=== PATIENT | female | born 1945 | race Caucasian/White ===

== ENCOUNTER 2021-04-27 12:51 | Emergency (ER) | payer MEDICARE, SELFPAY ==
--- NOTE | ~2021-04-27 | XR_ITS ---
EXAMINATION: XR chest 2V DATE: 04/27/2021 13:31 INDICATION: Chest pain TECHNIQUE: PA and lateral views of the chest are obtained. COMPARISON: None available FINDINGS: The lungs are free of acute opacities. There is no pleural effusion or pneumothorax. Median sternotomy wires and mediastinal surgical clips are seen, likely from prior coronary artery bypass g rafting. There is mild thoracic spondylosis. Coronary artery stents are noted. There are surgical cli ps in the left axilla. IMPRESSION: 1. No acute cardiopulmonary abnormality. Reviewed, dictated and finalized at location B.
--- NOTE | 2021-04-27 12:52 | ECG_ITS ---
Measurements Intervals [place] Rate: 62 P: 35 PA: 188 QRS: 16 QRSD: 94 T: -1 QT: 399 QTc: 407 Interpretive Statements SINUS RHYTHM INFERIOR INFARCT, AGE INDETERMINATE ABNORMAL ECG Electronically Signed On 04-27-2021 13:09:16 CDT by Wan Bryant D.O.
[2021-04-27 12:59] VITALS: BP 134/57; PULSE 63; RESP 18; TEMP 36.5; O2SAT 99
[2021-04-27 13:15] LABS: Basophils Absolute Auto 0.1 K/mm3 (0.0-0.1); Basophils Percent Auto 0.8 % (0.2-1.2); Eosinophils Absolute Auto 0.3 K/mm3 (0-0.3); Eosinophils Percent Auto 3.7 % (0-4.4); Hematocrit 44.2 % (37.0-47.0); Hemoglobin 14.3 g/dL (12.0-15.0); Immature Granulocyte Absolute 0.03 K/mm3 (0.00-0.031); Immature Granulocyte Percent A 0.3 % (0-0.5); Lymphocytes Absolute Auto 2.06 K/mm3 (0.9-3.2); Lymphocytes Percent Auto 22.8 % (18.3-44.2); Mean Corpuscular HGB Conc 32.4 g/dl (32-36); Mean Corpuscular Hemoglobin 30.2 pg (26-34); Mean Corpuscular Volume 93.2 fl (80-100); Mean Platelet Volume 10.7 fl (7.4-10.4); Monocytes Absolute Auto 0.6 K/mm3 (0.1-0.6); Monocytes Percent Auto 6.1 % (2.6-8.5); Neutrophils Percent Auto 66.3 % (45.5-73.1); Platelet Count Result 310 k/mm3 (150-375); Red Blood Count 4.74 M/mm3 (4.2-5.4); Red Cell Distribution Width 13.2 % (11.5-14.5)
--- NOTE | 2021-04-27 13:17 | PC.NURSE ---
Michelle Chan, added on hepatic and lipase
[2021-04-27 13:19] LABS: Anion Gap 12 mmol/L (8-16); Blood Urea Nitrogen 24 mg/dL (7-17); Calcium 10.1 mg/dL (8.4-10.2); Carbon Dioxide 20 mmol/L (22-30); Chloride 106 mmol/L (98-107); Estimated CRCL calculation 24 ml/min; Estimated Glomerular Filt Rate 28; Glucose 182 mg/dL (65-105); Potassium 4.8 mmol/L (3.4-5.0); Sodium 138 mmol/L (137-145)
[2021-04-27 13:27] LABS: Alanine Aminotransferase 17 U/L (4-35); Albumin Level 4.7 g/dL (3.5-5.1); Alkaline Phosphatase 138 U/L (38-126); Aspartate Amino Transferase 27 U/L (14-36); Bilirubin,Total 0.5 mg/dL (0.2-1.3); INR 0.9; Lipase 293 U/L (23-300); Prothrombin Time 12.1 Seconds (11.1-14.7)
[2021-04-27 13:28] LABS: Partial Thromboplastin Time 25.2 SECONDS (22.3-36.8)
[2021-04-27 13:31] LABS: Troponin I < 0.012 ng/mL (0.000-0.034)
[2021-04-27] MEDS: LIDOCAINE HCL 2% VISC SOLN 15 ML UDC 20 ML PO (14:59)
[2021-04-27] MEDS: MAG HYDROX/AL HYDROX/SIMETH 30 ML UDC PO (14:59)
[2021-04-27 15:00] VITALS: BP 141/81; PULSE 58; PULSE 60; RESP 16; O2SAT 98
[2021-04-27 16:00] LABS: Troponin I < 0.012 ng/mL (0.000-0.034)
[2021-04-27] MEDS: PANTOPRAZOLE 40 MG TABLET PO (16:14)
[2021-04-27 16:15] VITALS: BP 134/77; PULSE 63; RESP 20; O2SAT 98
--- NOTE | 2021-04-27 16:27 | ED.GENADULT ---
HPI - General Adult General Chief complaint: Chest Pain Stated complaint: chest pain Time Seen by Provider: 04/27/21 13:06 Source: patient, family and RN notes reviewed Mode of arrival: ambulatory Limitations: no limitations History of Present Illness HPI narrative: Patient is a 76-year-old female who presents to emergency department for evaluation of epigastric abdominal pain radiating up into the chest patient notes that it began 2 hours after having a lobster dinner last night she notes history of reflux and states that she did take some Pepcid and Tums with minimal improvement. Pain persisted this morning and came in for evaluation. Patient denies similar occurrence in the past but does no history of reflux. Patient denies vomiting. Patient notes she did have some loose stools today. Denies any dyspnea or URI symptoms Related Data Allergies Allergy/AdvReac Type Severity Reaction Status Date / Time codeine Allergy Hives Verified 04/27/21 15:03 Review of Systems Review of Systems: All systems reviewed & are unremarkable except as noted in HPI and below PMFSH Past Medical History Medical History (Updated 04/27/21 @ 16:38 by Solomon Laird PA-C) Coronary artery disease Hyperlipidemia Hypertension Surgical History Surgical History (Updated 04/27/21 @ 16:28 by Solomon Laird PA-C) Hx of CABG Social History Social History Gender identity (if verbalized by the patient): Female Course Course Emergency Course: Patient had improvement with GI cocktail and will be discharged home with outpatient follow-up with primary care felt appropriate and agree with this plan for outpatient follow-up patient is afebrile nontoxic-appearing ABCs and vital signs intact and stable. No other high risk changes in the evaluation Vital Signs Vital signs: Vital Signs Temperature 97.7 F 04/27/21 12:59 Pulse Rate 63 04/27/21 12:59 Respiratory Rate 18 04/27/21 12:59 Blood Pressure 134/57 L 04/27/21 12:59 Pulse Oximetry 99 04/27/21 12:59 Temperature 97.7 F 04/27/21 12:59 Pulse Rate 63 04/27/21 16:15 Respiratory Rate 20 04/27/21 16:15 Blood Pressure 134/77 04/27/21 16:15 Pulse Oximetry 98 04/27/21 16:15 Medical Decision Making [facility] Narrative Medical decision making narrative: Patient presented with GI upset which improved with medications no other high risk changes likely reflux in nature will be discharged with outpatient follow-up agreement with this plan and will return if symptoms worsen Vital Signs Vital Signs: Vital Signs Temperature 97.7 F 04/27/21 12:59 Pulse Rate 63 04/27/21 12:59 Respiratory Rate 18 04/27/21 12:59 Blood Pressure 134/57 L 04/27/21 12:59 Pulse Oximetry 99 04/27/21 12:59 Temperature 97.7 F 04/27/21 12:59 Pulse Rate 63 04/27/21 16:15 Respiratory Rate 20 04/27/21 16:15 Blood Pressure 134/77 04/27/21 16:15 Pulse Oximetry 98 04/27/21 16:15 Lab Data Result diagrams: 04/27/21 13:01 04/27/21 13:01 Labs: Lab Results 04/27/21 04/27/21 04/27/21 Range/Units 13:01 13:01 13:01 WBC 9.0 (4.5-10.0) K/mm3 RBC 4.74 (4.2-5.4) M/mm3 Hgb 14.3 (12.0-15.0) g/dL Hct 44.2 (37.0-47.0) % MCV 93.2 (80-100) fl MCH 30.2 (26-34) pg MCHC 32.4 (32-36) g/dl RDW 13.2 (11.5-14.5) % Plt Count 310 (150-375) k/mm3 MPV 10.7 H (7.4-10.4) fl Immature Gran % (Auto) 0.3 (0-0.5) % Neut % (Auto) 66.3 (45.5-73.1) % Lymph % (Auto) 22.8 (18.3-44.2) % Kane % (Auto) 6.1 (2.6-8.5) % Eos % (Auto) 3.7 (0-4.4) % Baso % (Auto) 0.8 (0.2-1.2) % Lymph # (Auto) 2.06 (0.9-3.2) K/mm3 Kane # (Auto) 0.6 (0.1-0.6) K/mm3 Eos # (Auto) 0.3 (0-0.3) K/mm3 Baso # (Auto) 0.1 (0.0-0.1) K/mm3 Abs Immat Gran (auto) 0.03 (0.00-0.031) K/mm3 Absolute Neuts (auto) 6.0 (1.3-6.7) K/mm3 Absolute Nucleated RBC 0.0 (0.0-0.012) K/mm3 Nucleated RBC %
[2021-04-27 17:01] VITALS: BP 111/74; PULSE 60; RESP 16; O2SAT 97
== END 2021-04-27 17:02 | disposition home or self-care (01) ==
PROVIDERS: Emergency Medicine; Emergency Provider Emergency Medicine
DX: R10.13 Epigastric pain (principal); I25.10 Atherosclerotic heart disease of native coronary artery without angina pectoris; E78.5 Hyperlipidemia, unspecified; I10 Essential (primary) hypertension; Z95.1 Presence of aortocoronary bypass graft; R94.31 Abnormal electrocardiogram [ECG] [EKG]
CPT/HCPCS: 36415; 71046; 80048; 80076; 83690; 84484; 85025; 85610; 85730; 93005; 99284; A9270

== ENCOUNTER 2021-08-26 16:39 | Emergency (ER) | payer MEDICARE, SELFPAY ==
[2021-08-26] VITALS (16 sets, daily range): BP systolic 117–155; BP diastolic 56–78; PULSE 71–80; RESP 11–20; TEMP 36.4; O2SAT 88–99
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
--- NOTE | 2021-08-26 16:45 | ECG_ITS ---
Measurements Intervals [place] Rate: 80 P: 18 HI: 152 QRS: 28 QRSD: 90 T: -14 QT: 355 QTc: 411 Interpretive Statements SINUS RHYTHM INFERIOR INFARCT, AGE INDETERMINATE BORDERLINE ST-T WAVE ABNORMALITY- ANTEROLATERAL LEADS BASELINE ARTIFACT- V3-V5 ABNORMAL ECG Electronically Signed On 08-26-2021 20:25:54 CDT by Wan Bryant D.O.
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
[2021-08-26 18:06] LABS: Basophils Absolute Auto 0.1 K/mm3 (0.0-0.1); Basophils Percent Auto 0.6 % (0.2-1.2); Eosinophils Absolute Auto 0.4 K/mm3 (0-0.3); Eosinophils Percent Auto 3.1 % (0-4.4); Hematocrit 36.7 % (37.0-47.0); Hemoglobin 12.2 g/dL (12.0-15.0); Immature Granulocyte Absolute 0.14 K/mm3 (0.00-0.031); Immature Granulocyte Percent A 1.2 % (0-0.5); Lymphocytes Absolute Auto 2.77 K/mm3 (0.9-3.2); Mean Corpuscular HGB Conc 33.2 g/dl (32-36); Mean Corpuscular Volume 93.1 fl (80-100); Mean Platelet Volume 10.2 fl (7.4-10.4); Monocytes Absolute Auto 0.9 K/mm3 (0.1-0.6); Monocytes Percent Auto 7.4 % (2.6-8.5); Neutrophils Absolute Auto 7.3 K/mm3 (1.3-6.7); Neutrophils Percent Auto 63.7 % (45.5-73.1); Platelet Count Result 290 k/mm3 (150-375); Red Blood Count 3.94 M/mm3 (4.2-5.4); Red Cell Distribution Width 13.2 % (11.5-14.5); White Blood Count 11.5 K/mm3 (4.5-10.0)
[2021-08-26 18:07] LABS: Glucose Point of Care 80 mg/dl (65-105)
[2021-08-26 18:18] LABS: Prothrombin Time 12.9 Seconds (11.1-14.7)
[2021-08-26 18:19] LABS: Partial Thromboplastin Time 26.7 SECONDS (22.3-36.8)
[2021-08-26 18:20] LABS: Alanine Aminotransferase 18 U/L (4-35); Alkaline Phosphatase 104 U/L (38-126); Anion Gap 12 mmol/L (8-16); Aspartate Amino Transferase 30 U/L (14-36); Bilirubin,Total 0.3 mg/dL (0.2-1.3); Blood Urea Nitrogen 37 mg/dL (7-17); Calcium 9.7 mg/dL (8.4-10.2); Carbon Dioxide 21 mmol/L (22-30); Chloride 108 mmol/L (98-107); Estimated CRCL calculation 22 ml/min; Estimated Glomerular Filt Rate 24; Glucose 90 mg/dL (65-110); Lipase 319 U/L (23-300); Magnesium 1.9 mg/dL (1.6-2.3); Potassium 3.9 mmol/L (3.4-5.0); Sodium 141 mmol/L (137-145)
[2021-08-26] MEDS: ONDANSETRON INJ 4 MG/2 ML VIAL IV PUSH (18:23)
[2021-08-26] MEDS: MORPHINE SULFATE (*CRX) 2 MG/ML INJ IV PUSH (18:27)
[2021-08-26 18:31] LABS: Troponin I < 0.012 ng/mL (0.000-0.034)
--- NOTE | 2021-08-26 19:00 | PC.NURSE ---
Assuming care of pt.
[2021-08-26] MEDS: fentaNYL CITRATE INJ (*CRX) 100 MCG/2 ML VIAL 50 MCG IV PUSH (21:05)
[2021-08-26 21:14] LABS: Glucose Point of Care 141 mg/dl (65-105)
--- NOTE | 2021-08-26 21:40 | ECG_ITS ---
Measurements Intervals [place] Rate: 79 P: 39 MA: 179 QRS: 8 QRSD: 85 T: -6 QT: 357 QTc: 411 Interpretive Statements SINUS RHYTHM INFERIOR INFARCT, AGE INDETERMINATE BORDERLINE T WAVE ABNORMALITY- ANTEROLATERAL LEADS ABNORMAL ECG Electronically Signed On 08-27-2021 6:39:12 CDT by Wan Bryant D.O.
[2021-08-26 22:18] LABS: Troponin I < 0.012 ng/mL (0.000-0.034)
[2021-08-26 22:32] LABS: EDCOVIDSCREEN Negative (Negative)
--- NOTE | 2021-08-26 23:21 | PC.NURSE ---
RN called report to Jeff KILLIAN at [facility] pt will be going to room 6605. Daughter aware. Transportation being set up for transport.
[2021-08-26 23:25] LABS: Add Urine Microscopic? YES; Appearance Urine Cloudy (Clear); Bacteria Urine Trace /hpf; Bilirubin Urine Negative (Negative); Blood Urine Negative (Negative); Color Urine Yellow (Yellow); Glucose Urine UA Negative (Negative); Ketones Urine Negative (Negative); Leukocyte Esterase Ur Trace LEU/UL (Negative); Mucus Urine Rare /lpf; Nitrate Urine Negative (Negative); Protein Urine 1+ mg/dL (Negative); Specific Grav Ur 1.021 (1.001-1.035); Squamous Epithelial Cell Urine Many /hpf (Few); Urobilinogen Urine Negative mg/dL (<2.0)
[2021-08-26 23:49] LABS: Glucose Point of Care 154 mg/dl (65-105)
[2021-08-27 01:10] VITALS: BP 131/57; PULSE 80; RESP 16; O2SAT 93
--- NOTE | 2021-08-27 01:39 | PC.NURSE ---
Addendum entered by Sil Batista 08/27/21 04:52: 08/27/21 @ 0450: [facility] called with updated ETA...enroute, coming from [place]. Addendum entered by Sil Batista 08/27/21 03:40: 08/27/21 @0338: Called [facility] for status: ETA approximately 0445 Addendum entered by Sli Batista 08/27/21 02:40: 08/27/21 @ 0238: [facility] called with updated ETA...0330...call volume exceeding availability. Addendum entered by Sil Batista 08/27/21 02:03: 08/27/21 @ 0204: Called [facility] for transport...declined...they do not have the resources. Original Note: 08/26/21 @ 2322: Called [facility] to transport patient to [facility], Rm 6605...ETA 45 minutes. 08/27/21 @ 0012: Called [facility] for status: ETA 1 hour. 08/27/21 @ 0134: Called [facility] for status: ETA 0300.
[2021-08-27 02:31] VITALS: BP 127/56; PULSE 77; RESP 16; O2SAT 94
[2021-08-27] MEDS: fentaNYL CITRATE INJ (*CRX) 100 MCG/2 ML VIAL 10 MCG IV PUSH (02:31)
[2021-08-27 03:43] VITALS: BP 122/81; PULSE 81; RESP 18; O2SAT 94
[2021-08-27 04:40] VITALS: BP 139/72; PULSE 83; RESP 16; O2SAT 94
[2021-08-27 05:45] VITALS: BP 152/70; PULSE 85; RESP 18; O2SAT 93
== END 2021-08-27 05:47 | disposition short-term general hospital (02) ==
PROVIDERS: Emergency Provider Emergency Medicine
DX: S20.219A Contusion of unspecified front wall of thorax, initial encounter (principal); S60.222A Contusion of left hand, initial encounter; R55 Syncope and collapse; Z20.822 Contact with and (suspected) exposure to COVID-19; I12.9 Hypertensive chronic kidney disease with stage 1 through stage 4 chronic kidney disease, or unspecified chronic kidney disease; E11.22 Type 2 diabetes mellitus with diabetic chronic kidney disease; N18.30 Chronic kidney disease, stage 3 unspecified; I25.10 Atherosclerotic heart disease of native coronary artery without angina pectoris; E78.5 Hyperlipidemia, unspecified; Z95.1 Presence of aortocoronary bypass graft; Z79.4 Long term (current) use of insulin; Z79.02 Long term (current) use of antithrombotics/antiplatelets; R82.998 Other abnormal findings in urine; R94.31 Abnormal electrocardiogram [ECG] [EKG]; R93.7 Abnormal findings on diagnostic imaging of other parts of musculoskeletal system; V47.5XXA Car driver injured in collision with fixed or stationary object in traffic accident, initial encounter
CPT/HCPCS: 36415; 70450; 71250; 72125; 73130; 74176; 80053; 81001; 82948; 83690; 83735; 84484; 85025; 85610; 85730; 86850; 86900; 86901; 87086; 87426; 93005; 96374; 96375; 99285; C9803; J2270; J2405; J3010

== ENCOUNTER 2021-09-19 09:53 | Outpatient (CLI) | payer MEDICARE, SELFPAY ==
[2021-09-19 10:48] LABS: Alanine Aminotransferase 20 U/L (4-35); Albumin Level 4.2 g/dL (3.5-5.1); Alkaline Phosphatase 168 U/L (38-126); Anion Gap 7 mmol/L (8-16); Aspartate Amino Transferase 26 U/L (14-36); Bilirubin,Total 0.4 mg/dL (0.2-1.3); Blood Urea Nitrogen 24 mg/dL (7-17); Calcium 10.3 mg/dL (8.4-10.2); Carbon Dioxide 27 mmol/L (22-30); Chloride 106 mmol/L (98-107); Cholesterol 250 mg/dL (0-200); Estimated Glomerular Filt Rate 32; Glucose 125 mg/dL (65-110); HDL Direct 40 mg/dL; Potassium 4.4 mmol/L (3.4-5.0); Prothrombin Time 64.8 Seconds (11.1-14.7); Sodium 140 mmol/L (137-145); Triglycerides 184 mg/dL (<150)
[2021-09-19 11:08] LABS: LDL Cholesterol Direct 149 mg/dL
[2021-09-19 11:17] LABS: Hemoglobin A1C 6.5 % (<5.7)
[2021-09-19 11:37] LABS: Vitamin D 25 Hydroxy 31.4 ng/mL
[2021-09-19 12:37] LABS: INR 8.1
== END 2021-09-19 09:54 | disposition home or self-care (01) ==
LOC: ANHLAB 09:57
PROVIDERS: Visit Provider Nurse Practitioner
DX: N18.30 Chronic kidney disease, stage 3 unspecified (principal); Z13.21 Encounter for screening for nutritional disorder; E11.9 Type 2 diabetes mellitus without complications; E78.5 Hyperlipidemia, unspecified; Z13.29 Encounter for screening for other suspected endocrine disorder; Z51.81 Encounter for therapeutic drug level monitoring
CPT/HCPCS: 36415; 80053; 80061; 82306; 83036; 84443; 85610

== ENCOUNTER 2021-10-01 08:44 | Outpatient (CLI) | payer MEDICARE, SELFPAY ==
--- NOTE | ~2021-10-01 | CT_ITS ---
EXAMINATION: CT chest high resolution wo tn DATE: 10/01/2021 09:00 INDICATION: Other nonspecific abnormal finding of the lung field TECHNIQUE: Computed tomography (CT) of the chest was performed without intravenous contrast. The dose -length product (DLP) was 206.97 mGy-cm. Automated exposure control and iterative reconstruction tech Leinentausch were employed. COMPARISON: 08/26/2021 FINDINGS: There is a stable 4 mm nodule of the right middle lobe. A stable 2 mm nodule is present in the right lower lobe. No new pulmonary nodules are identified. The lungs are free of acute opacities. There is no pleural effusion or pneumothorax. Changes of coronary artery bypass grafting are noted. The heart size is normal. There are no pathologically enlarged thoracic lymph nodes. There are change s of lumpectomy in the left breast with left axillary lymph node dissection. Changes in the right moe ast could reflect reduction mammoplasty. There is mild atrophy of the kidneys. There is mild thoracic spondylosis. A partially imaged deformity of the superior L2 endplate is noted. IMPRESSION: 1. Stable right lung nodules, likely old granulomatous disease. Given the likely history of treated b reast cancer, consider follow-up chest CT in 12 months. Reviewed, dictated and finalized at location A. [facility] SPECIALIST IMPRESSION: 1. Stable right lung nodules, likely old granulomatous disease. Given the likel y history of treated breast cancer, consider follow-up chest CT in 12 months.
== END 2021-10-01 08:45 | disposition home or self-care (01) ==
LOC: ANHIMG 08:45
PROVIDERS: PCP Internal Medicine; Visit Provider Nurse Practitioner
DX: R91.8 Other nonspecific abnormal finding of lung field (principal)
CPT/HCPCS: 36415; 71250; 85610

== ENCOUNTER 2021-12-15 11:48 | Outpatient (RCR) | payer MEDICARE, SELFPAY ==
[2021-09-24 13:35] LABS: INR 4.9; Prothrombin Time 44.3 Seconds (11.1-14.7)
[2021-10-01 09:47] LABS: INR 4.2
[2021-10-15 14:02] LABS: Prothrombin Time 47.1 Seconds (11.1-14.7)
[2021-10-15 14:38] LABS: INR 5.4
[2021-12-10 13:06] LABS: INR 6.3
[2021-12-15 12:17] LABS: INR 3.5
[2021-12-15 12:18] LABS: Anion Gap 6 mmol/L (8-16); Blood Urea Nitrogen 27 mg/dL (7-17); Calcium 9.5 mg/dL (8.4-10.2); Carbon Dioxide 24 mmol/L (22-30); Chloride 108 mmol/L (98-107); Estimated Glomerular Filt Rate 29; Glucose 121 mg/dL (65-110); Potassium 4.5 mmol/L (3.4-5.0); Sodium 138 mmol/L (137-145)
== END 2021-12-23 23:59 | disposition home or self-care (01) ==
LOC: ANHLAB 11:48
PROVIDERS: PCP Internal Medicine; Visit Provider Nurse Practitioner
DX: Z51.81 Encounter for therapeutic drug level monitoring (principal); Z79.899 Other long term (current) drug therapy
CPT/HCPCS: 36415; 80048; 85610

== ENCOUNTER 2022-02-08 14:22 | Emergency (ER) | payer MEDICARE, SELFPAY | END 2022-02-08 14:59 | disposition left against medical advice (07) | PROVIDERS: Emergency Provider General Practice; PCP Internal Medicine; Visit Provider General Practice | DX: Z53.21 Procedure and treatment not carried out due to patient leaving prior to being seen by health care provider (principal) | CPT/HCPCS: 99199 ==

== ENCOUNTER 2022-02-22 13:35 | Outpatient (CLI) | payer MEDICARE, SELFPAY ==
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
== END 2022-02-22 13:36 | disposition home or self-care (01) ==
PROVIDERS: PCP Internal Medicine; Visit Provider Nurse Practitioner
DX: I82.402 Acute embolism and thrombosis of unspecified deep veins of left lower extremity (principal)
CPT/HCPCS: 93971

== ENCOUNTER 2022-04-05 13:44 | Outpatient (RCR) | payer MEDICARE, SELFPAY ==
[2022-01-10 16:21] LABS: INR 4.4; Prothrombin Time 40.9 Seconds (11.1-14.7)
[2022-01-22 15:32] LABS: INR 4.4; Prothrombin Time 40.8 Seconds (11.1-14.7)
[2022-02-05 16:47] LABS: INR 3.2
[2022-02-18 14:12] LABS: Anion Gap 7 mmol/L (8-16); Blood Urea Nitrogen 27 mg/dL (7-17); Carbon Dioxide 24 mmol/L (22-30); Chloride 107 mmol/L (98-107); Estimated Glomerular Filt Rate 23; Glucose 182 mg/dL (65-110); Potassium 5.2 mmol/L (3.4-5.0); Sodium 138 mmol/L (137-145)
[2022-02-18 14:31] LABS: INR 2.8; Prothrombin Time 28.3 Seconds (11.1-14.7)
[2022-03-04 12:03] LABS: INR 2.2
[2022-03-04 12:06] LABS: Anion Gap 11 mmol/L (8-16); Blood Urea Nitrogen 28 mg/dL (7-17); Carbon Dioxide 18 mmol/L (22-30); Chloride 109 mmol/L (98-107); Estimated Glomerular Filt Rate 23; Glucose 89 mg/dL (65-110); Potassium 4.3 mmol/L (3.4-5.0); Sodium 138 mmol/L (137-145)
[2022-04-05 14:15] LABS: INR 1.6
[2022-04-05 14:18] LABS: Anion Gap 9 mmol/L (8-16); Blood Urea Nitrogen 31 mg/dL (7-17); Calcium 9.6 mg/dL (8.4-10.2); Carbon Dioxide 22 mmol/L (22-30); Chloride 109 mmol/L (98-107); Estimated Glomerular Filt Rate 24; Glucose 125 mg/dL (65-110); Potassium 4.4 mmol/L (3.4-5.0); Sodium 140 mmol/L (137-145)
== END 2022-04-10 23:59 | disposition home or self-care (01) ==
LOC: ANHLAB 13:44
PROVIDERS: PCP Internal Medicine; Visit Provider Internal Medicine
DX: Z51.81 Encounter for therapeutic drug level monitoring (principal); Z79.899 Other long term (current) drug therapy
CPT/HCPCS: 36415; 80048; 85610

== ENCOUNTER 2022-07-08 16:52 | Outpatient (CLI) | payer MEDICARE, SELFPAY ==
[2022-07-08 17:31] LABS: Basophils Absolute Auto 0.1 K/mm3 (0.0-0.1); Basophils Percent Auto 1.1 % (0.2-1.2); Eosinophils Absolute Auto 0.4 K/mm3 (0-0.3); Eosinophils Percent Auto 4.7 % (0-4.4); Hematocrit 39.8 % (37.0-47.0); Hemoglobin 13.1 g/dL (12.0-15.0); Immature Granulocyte Absolute 0.02 K/mm3 (0.00-0.031); Immature Granulocyte Percent A 0.3 % (0-0.5); Lymphocytes Absolute Auto 2.24 K/mm3 (0.9-3.2); Lymphocytes Percent Auto 30.1 % (18.3-44.2); Mean Corpuscular HGB Conc 32.9 g/dl (32-36); Mean Corpuscular Hemoglobin 30.2 pg (26-34); Mean Corpuscular Volume 91.7 fl (80-100); Mean Platelet Volume 11.7 fl (7.4-10.4); Monocytes Absolute Auto 0.6 K/mm3 (0.1-0.6); Monocytes Percent Auto 8.6 % (2.6-8.5); Neutrophils Absolute Auto 4.1 K/mm3 (1.3-6.7); Neutrophils Percent Auto 55.2 % (45.5-73.1); Platelet Count Result 284 k/mm3 (150-375); Red Blood Count 4.34 M/mm3 (4.2-5.4); Red Cell Distribution Width 13.5 % (11.5-14.5); White Blood Count 7.4 K/mm3 (4.5-10.0)
[2022-07-08 17:40] LABS: Albumin Level 4.3 g/dL (3.5-5.1); Anion Gap 12 mmol/L (8-16); Blood Urea Nitrogen 22 mg/dL (7-17); Calcium 9.5 mg/dL (8.4-10.2); Carbon Dioxide 21 mmol/L (22-30); Chloride 105 mmol/L (98-107); Estimated Glomerular Filt Rate 29; Glucose 180 mg/dL (65-110); Phosphorus 2.9 mg/dL (2.5-4.5); Potassium 4.2 mmol/L (3.4-5.0); Sodium 138 mmol/L (137-145)
== END 2022-07-08 16:53 | disposition home or self-care (01) ==
LOC: ANHLAB 16:56
PROVIDERS: PCP Internal Medicine
DX: N18.4 Chronic kidney disease, stage 4 (severe) (principal)
CPT/HCPCS: 36415; 80069; 85025

== ENCOUNTER 2022-12-23 15:53 | Outpatient (CLI) | payer MEDICARE, SELFPAY ==
[2022-12-23 16:53] LABS: Basophils Absolute Auto 0.1 K/mm3 (0.0-0.1); Basophils Percent Auto 1.1 % (0.2-1.2); Eosinophils Absolute Auto 0.4 K/mm3 (0-0.3); Eosinophils Percent Auto 5.7 % (0-4.4); Hematocrit 40.5 % (37.0-47.0); Hemoglobin 13.2 g/dL (12.0-15.0); Immature Granulocyte Absolute 0.01 K/mm3 (0.00-0.031); Immature Granulocyte Percent A 0.2 % (0-0.5); Lymphocytes Absolute Auto 2.09 K/mm3 (0.9-3.2); Lymphocytes Percent Auto 32.9 % (18.3-44.2); Mean Corpuscular HGB Conc 32.6 g/dl (32-36); Mean Corpuscular Hemoglobin 30.9 pg (26-34); Mean Corpuscular Volume 94.8 fl (80-100); Mean Platelet Volume 11.5 fl (7.4-10.4); Monocytes Absolute Auto 0.4 K/mm3 (0.1-0.6); Monocytes Percent Auto 6.9 % (2.6-8.5); Neutrophils Absolute Auto 3.4 K/mm3 (1.3-6.7); Neutrophils Percent Auto 53.2 % (45.5-73.1); Platelet Count Result 259 k/mm3 (150-375); Red Blood Count 4.27 M/mm3 (4.2-5.4); Red Cell Distribution Width 13.4 % (11.5-14.5); White Blood Count 6.4 K/mm3 (4.5-10.0)
[2022-12-23 17:03] LABS: Albumin Level 4.2 g/dL (3.5-5.1); Anion Gap 7 mmol/L (8-16); Blood Urea Nitrogen 25 mg/dL (7-17); Calcium 9.3 mg/dL (8.4-10.2); Carbon Dioxide 24 mmol/L (22-30); Chloride 105 mmol/L (98-107); Estimated Glomerular Filt Rate 29; Glucose 141 mg/dL (65-110); Phosphorus 2.8 mg/dL (2.5-4.5); Potassium 4.2 mmol/L (3.4-5.0); Sodium 136 mmol/L (137-145)
== END 2022-12-23 15:54 | disposition home or self-care (01) ==
PROVIDERS: PCP Internal Medicine
DX: N18.4 Chronic kidney disease, stage 4 (severe) (principal)
CPT/HCPCS: 36415; 80069; 85025

== ENCOUNTER 2023-10-06 14:04 | Outpatient (CLI) | payer MEDICARE, SELFPAY ==
[2023-10-06 14:55] LABS: Basophils Absolute Auto 0.1 K/mm3 (0.0-0.1); Eosinophils Absolute Auto 0.4 K/mm3 (0-0.3); Eosinophils Percent Auto 4.7 % (0-4.4); Hemoglobin 13.6 g/dL (12.0-15.0); Immature Granulocyte Absolute 0.02 K/mm3 (0.00-0.031); Immature Granulocyte Percent A 0.2 % (0-0.5); Lymphocytes Absolute Auto 2.09 K/mm3 (0.9-3.2); Mean Corpuscular HGB Conc 31.6 g/dl (32-36); Mean Corpuscular Hemoglobin 30.4 pg (26-34); Mean Corpuscular Volume 96.2 fl (80-100); Monocytes Absolute Auto 0.6 K/mm3 (0.1-0.6); Neutrophils Absolute Auto 4.9 K/mm3 (1.3-6.7); Neutrophils Percent Auto 61.1 % (45.5-73.1); Platelet Count Result 298 k/mm3 (150-375); Red Blood Count 4.47 M/mm3 (4.2-5.4); Red Cell Distribution Width 13.3 % (11.5-14.5)
[2023-10-06 15:07] LABS: Albumin Level 4.3 g/dL (3.5-5.1); Anion Gap 9 mmol/L (8-16); Blood Urea Nitrogen 27 mg/dL (7-17); Calcium 9.6 mg/dL (8.4-10.2); Carbon Dioxide 23 mmol/L (22-30); Chloride 108 mmol/L (98-107); Estimated Glomerular Filt Rate 24; Glucose 116 mg/dL (65-110); Phosphorus 3.2 mg/dL (2.5-4.5); Potassium 4.4 mmol/L (3.4-5.0); Sodium 140 mmol/L (137-145)
== END 2023-10-06 14:05 | disposition home or self-care (01) ==
PROVIDERS: PCP Internal Medicine
DX: N28.9 Disorder of kidney and ureter, unspecified (principal)
CPT/HCPCS: 36415; 80069; 85025